=== PATIENT | female | born 1990 | race American Indian/Alaskan Native ===

== ENCOUNTER 2020-09-15 07:16 | Emergency (ER) | payer MEDICAID, OTHER ==
[2020-09-15 07:46] VITALS: BP 118/54
[2020-09-15 08:14] LABS: Hematocrit 34.1 % (30.3-42.9); Hemoglobin 11.5 gm/dl (10.1-14.3); Mean Corpuscular HGB Conc 34 % (30-34); Mean Corpuscular Volume 80 fl (79-97); Platelet Count 290 K/mm3 (140-440); Red Blood Count 4.25 M/mm3 (3.65-5.03); Red Cell Distribution Width 15.6 % (13.2-15.2)
--- NOTE | 2020-09-15 10:44 | Emergency Department Report ---
ED HPI - General Chief complaint: Vaginal Bleeding Stated complaint: 13 WEEKS VAGINAL BLEEDING Time Seen by Provider: 09/15/20 08:49 Source: patient Mode of arrival: Ambulatory Limitations: No Limitations - History of Present Illness Initial comments: This is a 30-year-old female nontoxic, well nourished in appearance, no acute signs of distress presents to the ED with c/o of vaginal bleeding and pelvic pain x1 day. Patient stated is about 13 weeks . Patient denies any abdominal pain. Patient denies any vaginal discharge or foul odor. Patient denies any nausea, vomiting, chest pain, shortness of breathe, fever, chills, headache, stiff neck, numbness, tingling. Patient denies any urinary symptoms. Patient denies any allergies or PMH. MD Complaint: vaginal bleeding, other (pelvic pain) -: days(s) Location: pelvis Radiation: none Severity: mild Severity scale (0 -10): 8 Quality: cramping, aching Consistency: intermittent Improves with: none Worsens with: none Associated symptoms: vaginal bleeding. denies: nausea/vomiting, vaginal discharge, abdominal pain, dysuria, headache, vision changes, malaise, dysparuenia, rash, seizure, shortness of breath, syncope, weakness Vaginal bleeding: light :: Yes Pre- care: followed by OB - Related Data Home Medications Medication Instructions Recorded Confirmed Last Taken Pnv95/Ferrous Fumarate/FA 1 tab PO DAILY 01/11/14 01/30/16 01/10/14 21:00 [ Vitamins] 1 Previous Rx's Medication Instructions Recorded Last Taken Type Tobramycin [Tobrex Opth Oint] 3.5 gm OP Q4HR #1 oint...g. 05/07/14 Unknown Rx cephALEXin [Keflex] 500 mg PO Q6H #30 capsule 05/07/14 Unknown Rx Allergies Allergy/AdvReac Type Severity Reaction Status Date / Time No Known Allergies Allergy Verified 06/30/13 01:23 ED Review of Systems ROS: Stated complaint: 13 WEEKS VAGINAL BLEEDING Other details as noted in HPI Comment: All other systems reviewed and negative Constitutional: denies: chills, fever Eyes: denies: eye pain, eye discharge, vision change ENT: denies: ear pain, throat pain Respiratory: denies: cough, shortness of breath, wheezing Cardiovascular: denies: chest pain, palpitations Endocrine: no symptoms reported Gastrointestinal: denies: abdominal pain, nausea, diarrhea Genitourinary: abnormal menses. denies: urgency, dysuria, discharge Musculoskeletal: denies: back pain, joint swelling, arthralgia Skin: denies: rash, lesions Neurological: denies: headache, weakness, paresthesias Psychiatric: denies: anxiety, depression Hematological/Lymphatic: denies: easy bleeding, easy bruising ED Past Medical Hx - Past Medical History Hx Hypertension: No Hx Heart Attack/AMI: No Hx Congestive Heart Failure: No Hx Diabetes: No Hx Deep Vein Thrombosis: No Hx Renal Disease: No Hx Sickle Cell Disease: No Hx Seizures: No Hx Asthma: No Hx COPD: No Hx HIV: No - Surgical History Additional Surgical History: appendectomy - Social History Smoking Status: Never Smoker - Medications Home Medications: Home Medications Medication Instructions Recorded Confirmed Last Taken Type Pnv95/Ferrous Fumarate/FA 1 tab PO DAILY 01/11/14 01/30/16 01/10/14 21:00 History [ Vitamins] 1 Tobramycin [Tobrex Opth Oint] 3.5 gm OP Q4HR #1 oint...g. 05/07/14 01/30/16 Unknown Rx cephALEXin [Keflex] 500 mg PO Q6H #30 capsule 05/07/14 01/30/16 Unknown Rx ED Physical Exam - General Limitations: No Limitations General appearance: alert, in no apparent distress - Head Head exam: Present: atraumatic, normocephalic - Eye Eye exam: Present: normal appearance - Neck Neck exam: Present: normal inspection, full ROM - Respiratory Respiratory exam: Absent: respiratory distress - Cardiovascular Cardiovascular Exam: Present: regular rate - GI/Abdominal GI/Abdominal exam: Present: soft, normal bowel sounds. Absent: distended, tenderness, guarding, rebound, rigid, diminished bowel sounds - Extremities Exam Extremities exam: Present: full ROM - Back Exam Back exam: Present: normal inspection, full ROM. Absent: tenderness, CVA tenderness (R), CVA tenderness (L), muscle spasm, paraspinal tenderness, vertebral tenderness, rash noted - Neurological Exam Neurological exam: Present: alert, oriented X3, normal gait - Psychiatric Psychiatric exam: Present: normal affect, normal mood - Skin Skin exam: Present: warm, dry, intact, normal color. Absent: rash ED Course Vital Signs 09/15/20 07:45 Temperature 98.9 F Pulse Rate 79 Respiratory 18 Rate Blood Pressure 118/54 [Right] O2 Sat by Pulse 97 Oximetry - Reevaluation(s) Reevaluation #1: 09/15/20 10:47 Patient is speaking in full sentences with no signs of distress noted. ED Medical Decision Making - Lab Data Result diagrams: 09/15/20 08:03 Lab Results 09/15/20 09/15/20 09/15/20 Range/Units 08:03 08:09 09:06 WBC 6.8 (4.5-11.0) K/mm3 RBC 4.25 (3.65-5.03) M/mm3 Hgb 11.5 (10.1-14.3) gm/dl Hct 34.1 (30.3-42.9) % MCV 80 (79-97) fl MCH 27 L (28-32) pg MCHC 34 (30-34) % RDW 15.6 H (13.2-15.2) % Plt Count 290 (140-440) K/mm3 HCG, Quant 64575 H (0-4) mIU/mL Urine Color (Yellow) Urine Turbidity (Clear) Urine pH (5.0-7.0) Ur Specific [place] (1.003-1.030) Urine Protein (Negative) mg/dL Urine Glucose (UA) (Negative) mg/dL Urine Ketones (Negative) mg/dL Urine Blood (Negative) Urine Nitrite (Negative) Urine Bilirubin (Negative) Urine Urobilinogen (<2.0) mg/dL Ur Leukocyte Esterase (Negative) Urine WBC (Auto) (0.0-6.0) /HPF Urine RBC (Auto) (0.0-6.0) /HPF U Epithel Cells (Auto) (0-13.0) /HPF Urine Bacteria (Auto) (Negative) /HPF Hyaline Casts /LPF Urine Mucus /HPF Urine Yeast (Budding) /HPF Blood Type B POSITIVE Ord Rhogam Gestat Weeks Rh pos WEEKS 09/15/20 Range/Units Unknown WBC (4.5-11.0) K/mm3 RBC (3.65-5.03) M/mm3 Hgb (10.1-14.3) gm/dl Hct (30.3-42.9) % MCV (79-97) fl MCH (28-32) pg MCHC (30-34) % RDW (13.2-15.2) % Plt Count (140-440) K/mm3 HCG, Quant (0-4) mIU/mL Urine Color Yellow (Yellow) Urine Turbidity Slightly-cloudy (Clear) Urine pH 6.0 (5.0-7.0) Ur Specific [place] 1.017 (1.003-1.030) Urine Protein 30 mg/dl (Negative) mg/dL Urine Glucose (UA) Neg (Negative) mg/dL Urine Ketones Neg (Negative) mg/dL Urine Blood Lg (Negative) Urine Nitrite Neg (Negative) Urine Bilirubin Neg (Negative) Urine Urobilinogen 2.0 (<2.0) mg/dL Ur Leukocyte Esterase Neg (Negative) Urine WBC (Auto) 6.0 (0.0-6.0) /HPF Urine RBC (Auto) > 182.0 (0.0-6.0) /HPF U Epithel Cells (Auto) 11.0 (0-13.0) /HPF Urine Bacteria (Auto) 1+ (Negative) /HPF Hyaline Casts 1 /LPF Urine Mucus Few /HPF Urine Yeast (Budding) Few /HPF Blood Type Ord Rhogam Gestat Weeks WEEKS - Radiology Data Referring Physician: MAIKEL LEAL Patient Name: JENSEN WOOD Date of : 1990 Sex: Female Report Date: 2020-09-15 Report Status: [place] [address] Ultrasound Report Signed Patient: JENSEN WOOD MR#: [id number] : 1990 Acct:[id number] Age/Sex: 30 / F ADM Date: 09/15/20 Loc: ED Attending Dr: Ordering Physician: MAIKEL LEAL NP Date of Service: 09/15/20 Procedure(s): US OB <= 14 weeks fetus Accession Number(s): [id number] cc: MAIKEL LEAL NP US OB <= 14 weeks fetus INDICATION / CLINICAL INFORMATION: vaginal bleeding. TECHNIQUE: Transabdominal. COMPARISON: None available. FINDINGS: UTERUS: Appears within normal limits. GESTATIONAL SAC: Well-defined oval shape and intrauterine in location. The placenta is low-lying. EMBRYO/FETUS: - [place]- Rump Length = 7.4 cm = 13 weeks 4 days. - Heart Rate, beats per minute (if present) = 155 beats per minute BPD is 2.5 cm, consistent with 14 weeks and 2 days Femur length is 1.2 cm, consistent with 13 weeks and 5 days. ADNEXA: Simple appearing ovarian cysts. FREE FLUID: None. ADDITIONAL FINDINGS: None. IMPRESSION: 1. Single, living intrauterine with estimated sonographic age of 13 weeks 6 days. EDC is 03/17/2021. 2. Low-lying placenta. Signer Name: Gareth Carrion MD Signed: 09/15/2020 10:43 AM Workstation Name: [id number] Transcribed By: CS Dictated By: Gareth Carrion MD Electronically Authenticated By: Gareth Carrion MD Signed Date/Time: 09/15/20 104 DD/ 104 TD/TT: - Medical Decision Making This is a 30-year-old female presents with threatened miscarriage. Patient is stable and was examined by me. Normal abdominal exam. US OB obtained and dictated by the radiologist. Ua obtained. Quantative serum test obtained. Patient notified of the US report with no questions noted by the patient. Patient was instructed f/u with PIECE GOODS CLERK in 3-5 days. RH factor positive. Labs within normal limits. At time of discharge, the patient does not seem toxic or ill in appearance. No acute signs of distress noted. Patient agrees to discharge treatment plan of care. No further questions noted by the patient. Critical care attestation.: If time is entered above; I have spent that time in minutes in the direct care of this critically ill patient, excluding procedure time. ED Disposition Clinical Impression: Threatened miscarriage Disposition: DC-01 TO HOME OR SELFCARE Is pt being admited?: No Does the pt Need Aspirin: No Condition: Stable Instructions: Threatened Miscarriage Additional Instructions: Follow-up with a OBGYN doctor in 3-5 days or if symptoms worsen and continue return to emergency room as soon as possible. Referrals: [facility] [Other] - 3-5 Days PRIMARY CARE, [Referring] - 3-5 Days [facility] [Provider Group] - 3-5 Days Forms: Work/School Release Form(ED)
--- NOTE | 2020-09-15 10:47 | Ultrasound Report ---
US OB <= 14 weeks fetus INDICATION / CLINICAL INFORMATION: vaginal bleeding. TECHNIQUE: Transabdominal. COMPARISON: None available. FINDINGS: UTERUS: Appears within normal limits. GESTATIONAL SAC: Well-defined oval shape and intrauterine in location. The placenta is low-lying. EMBRYO/FETUS: - [place]-Rump Length = 7.4 cm = 13 weeks 4 days. - Heart Rate, beats per minute (if present) = 155 beats per minute BPD is 2.5 cm, consistent with 14 weeks and 2 days Femur length is 1.2 cm, consistent with 13 weeks and 5 days. ADNEXA: Simple appearing ovarian cysts. FREE FLUID: None. ADDITIONAL FINDINGS: None. IMPRESSION: 1. Single, living intrauterine with estimated sonographic age of 13 weeks 6 days. EDC is . 2. Low-lying placenta. Signer Name: Gareth Carrion MD Signed: 09/15/2020 10:43 AM Workstation Name: [id number]
[2020-09-15 12:05] LABS: Bacteria,Urine 1+ /HPF (Negative); Bilirubin,Urine NEG (Negative); Blood,Urine LG (Negative); Color,Urine Yellow (Yellow); Hyaline Casts,Urine 1 /LPF; Mucus,Urine FEW /HPF
[2020-09-15 12:06] LABS: RBC,Urine > 182.0 /HPF (0.0-6.0)
== END 2020-09-15 12:42 | disposition home or self-care (01) ==
LOC: ED 07:16
DX: O20.0 Threatened abortion (principal); Z79.899 Other long term (current) drug therapy; Z3A.18 18 weeks gestation of pregnancy; Z90.49 Acquired absence of other specified parts of digestive tract
CPT/HCPCS: 36415; 76801; 81001; 84702; 85027; 86900; 86901

== ENCOUNTER 2020-11-07 12:11 | Emergency (ER) | payer OTHER ==
[2020-11-07] MEDS ORDERED: ONDANSETRON 4 MG/2 ML INJ IV ONE (13:42)
[2020-11-07] MEDS ORDERED: SODIUM CHLORIDE 0.9% 1000 ML 1,000 ML IV ONE ×2 (13:43→19:19)
--- NOTE | 2020-11-07 13:45 | Event Note ---
ED Screening Note Date of service: 11/07/20 Time: 13:43 ED Screening Note: 30-year-old female with no significant past medical history who is currently 22 weeks presents to the ER today complaining of shortness of breath cough, vomiting, headache for 2 days. Patient states that she had a Covid positive test yesterday. She reports associated generalized body aches, dizziness, loss of taste and smell, sharp chest pain with cough and pain to the sides of her abdomen. She also reports that she has been vomiting, she reports 3 episodes of vomiting in the past 2 days. He states that her BROADBAND ENGINEER recommended she come to the ER for evaluation. She is G5, P2 Ab2. Her BROADBAND ENGINEER is: My BROADBAND ENGINEER This initial assessment/diagnostic orders/clinical plan/treatment(s) is/are subject to change based on patients health status, clinical progression and re- assessment by fellow clinical providers in the ED. Further treatment and workup at subsequent clinical providers discretion. Patient/guardian urged not to elope from the ED as their condition may be serious if not clinically assessed and m anaged. Initial orders include: CBC, CMP, urinalysis, chest x-ray (risk and benefits discussed with patient), IV fluids, Zofran and Tylenol
[2020-11-07] MEDS ORDERED: ACETAMINOPHEN 325 MG TAB PO ONE (13:46)
[2020-11-07 14:01] LABS: Basophils % (Auto) 0.3 % (0.0-1.8); Eosinophils % (Auto) 0.1 % (0.0-4.3); Hematocrit 36.8 % (30.3-42.9); Hemoglobin 11.9 gm/dl (10.1-14.3); Lymphocytes % (Auto) 13.4 % (13.4-35.0); Mean Corpuscular HGB Conc 33 % (30-34); Mean Corpuscular Volume 81 fl (79-97); Monocytes # (Auto) 0.4 K/mm3 (0.0-0.8); Monocytes % (Auto) 5.7 % (0.0-7.3); Platelet Count 275 K/mm3 (140-440); Red Blood Count 4.57 M/mm3 (3.65-5.03); Red Cell Distribution Width 15.4 % (13.2-15.2)
[2020-11-07 14:20] LABS: Alanine Aminotransferase 10 units/L (7-56); Albumin 3.5 g/dL (3.9-5); Blood Urea Nitrogen 5 mg/dL (7-17); Calcium 8.9 mg/dL (8.4-10.2); Hemolysis Index 14
[2020-11-07 14:23] LABS: BUN/Creatinine Ratio 10
--- NOTE | 2020-11-07 14:34 | XRay Report ---
CHEST PA AND LATERAL VIEWS INDICATION: Shortness of breath, cough, COVID-19 positive. COMPARISON: None FINDINGS: Support devices: None Heart: Normal Lungs/Pleura: No acute pulmonary or pleural findings. IMPRESSION: 1. No significant abnormality. Signer Name: Dave Mcmanus MD Signed: 11/07/2020 2:30 PM Workstation Name: [id number]
[2020-11-07 17:01] LABS: Bilirubin,Urine NEG (Negative); Blood,Urine NEG (Negative); Color,Urine Amber (Yellow); Mucus,Urine 2+ /HPF
[2020-11-07] MEDS ORDERED: ONDANSETRON 4 MG/2 ML INJ ONE (17:23)
[2020-11-07] MEDS ORDERED: SODIUM CHLORIDE 0.9% 1000 ML 1,000 ML ONE (17:23)
[2020-11-07] MEDS ORDERED: ACETAMINOPHEN 325 MG TAB ONE (17:32)
[2020-11-07] MEDS ORDERED: METOCLOPRAMIDE 10 MG/2 ML INJ IV ONE (19:22)
--- NOTE | 2020-11-07 19:30 | Emergency Department Report ---
HPI - General Chief Complaint: Dyspnea/Respdistress Time Seen by Provider: 11/07/20 19:03 - HPI HPI: Room 36 The patient is a 30-year-old female present with a chief complaint of COVID-19. The patient states she tested positive for COVID-19 3 days ago. The patient states for the past 2 to 3 days she has had a headache shortness of breath nausea vomiting and loss of taste and smell. Patient denies history of fever. Patient denies vaginal bleeding but complains of bilateral abdominal pain. The patient is at 22 weeks gestational age. ED Past Medical Hx - Past Medical History Previous Medical History?: No - Surgical History Additional Surgical History: appendectomy - Family History Family history: no significant - Social History Smoking Status: Never Smoker Substance Use Type: None (Denies illicit drug use) - Medications Home Medications: Home Medications Medication Instructions Recorded Confirmed Last Taken Type Pnv95/Ferrous Fumarate/FA 1 tab PO DAILY 01/11/14 01/30/16 01/10/14 21:00 History [ Vitamins] 1 Tobramycin [Tobrex Opth Oint] 3.5 gm OP Q4HR #1 oint...g. 05/07/14 01/30/16 Unknown Rx cephALEXin [Keflex] 500 mg PO Q6H #30 capsule 05/07/14 01/30/16 Unknown Rx Albuterol Mdi (or & Nicu Only) 2 puff IH QID PRN #8.5 gram 11/07/20 Unknown Rx [ProAir HFA Inhaler] ED Review of Systems ROS: Stated complaint: COVID/ 22WKS/COUGH/HEADACHE Other details as noted in HPI Constitutional: denies: fever Eyes: denies: eye pain ENT: other (Loss of taste and smell). denies: throat pain Respiratory: shortness of breath Cardiovascular: denies: chest pain Endocrine: no symptoms reported Gastrointestinal: abdominal pain, nausea, vomiting Genitourinary: denies: dysuria Musculoskeletal: denies: back pain Neurological: headache Physical Exam - Physical Exam Vital Signs: Vital Signs 11/07/20 11/07/20 11/07/20 12:23 16:41 17:35 Temperature 98.4 F 98.1 F Pulse Rate 117 H 108 H Respiratory 20 18 18 Rate Blood Pressure 127/79 106/57 O2 Sat by Pulse 98 99 Oximetry Physical Exam: GENERAL: The patient is well-developed well-nourished female lying on stretcher not appearing to be in acute distress. [] HEENT: Normocephalic. Atraumatic. Extraocular motions are intact. Patient has moist mucous membranes. NECK: Supple. Trachea midline CHEST/LUNGS: Clear to auscultation. There is no respiratory distress noted. HEART/CARDIOVASCULAR: Regular. There is no tachycardia. There is no gallop rub or murmur. ABDOMEN: Abdomen is soft, with diffuse tenderness to palpation. There is no rebound or guarding. Patient has normal bowel sounds. The patient is gravid SKIN: There is no rash. There is no edema. There is no diaphoresis. NEURO: The patient is awake, alert, and oriented. The patient is cooperative. The patient has no focal neurologic deficits. The patient has normal speech MUSCULOSKELETAL: There is no evidence of acute injury. ED Course Vital Signs 11/07/20 11/07/20 11/07/20 12:23 16:41 17:35 Temperature 98.4 F 98.1 F Pulse Rate 117 H 108 H Respiratory 20 18 18 Rate Blood Pressure 127/79 106/57 O2 Sat by Pulse 98 99 Oximetry - Consultations Consultation #1: 11/07/20 21:57 SMUTTER paged 11/07/20 22:05 Case discussed with Anne nurse concrete layer for Dr. Kent- states patient may be discharged home. States it is okay to give patient prescription for albuterol inhaler ED Medical Decision Making - Lab Data Result diagrams: 11/07/20 13:47 11/07/20 13:47 Laboratory Tests 11/07/20 11/07/20 11/07/20 13:47 13:47 13:47 WBC 7.3 RBC 4.57 Hgb 11.9 Hct 36.8 MCV 81 MCH 26 L MCHC 33 RDW 15.4 H Plt Count 275 Lymph % (Auto) 13.4 [place] % (Auto) 5.7 Eos % (Auto) 0.1 Baso % (Auto) 0.3 Lymph # (Auto) 1.0 L [place] # (Auto) 0.4 Eos # (Auto) 0.0 Baso # (Auto) 0.0 Seg Neutrophils % 80.5 H Seg Neutrophils # 5.9 Sodium 133 L Potassium 3.9 Chloride 102.1 Carbon Dioxide 22 Anion Gap 13 BUN 5 L Creatinine 0.5 L Estimated GFR > 60 BUN/Creatinine Ratio 10 Glucose 73 Calcium 8.9 Total Bilirubin 0.30 AST 14 ALT 10 Alkaline Phosphatase 86 Total Protein 6.8 Albumin 3.5 L Albumin/Globulin Ratio 1.1 Lipase 19 Urine Color Urine Turbidity Urine pH Ur Specific [place] Urine Protein Urine Glucose (UA) Urine Ketones Urine Blood Urine Nitrite Urine Bilirubin Urine Urobilinogen Ur Leukocyte Esterase Urine WBC (Auto) Urine RBC (Auto) U Epithel Cells (Auto) Urine Mucus 11/07/20 14:09 WBC RBC Hgb Hct MCV MCH MCHC RDW Plt Count Lymph % (Auto) [place] % (Auto) Eos % (Auto) Baso % (Auto) Lymph # (Auto) [place] # (Auto) Eos # (Auto) Baso # (Auto) Seg Neutrophils % Seg Neutrophils # Sodium Potassium Chloride Carbon Dioxide Anion Gap BUN Creatinine Estimated GFR BUN/Creatinine Ratio Glucose Calcium Total Bilirubin AST ALT Alkaline Phosphatase Total Protein Albumin Albumin/Globulin Ratio Lipase Urine Color [place] Urine Turbidity Slightly-cloudy Urine pH 6.0 Ur Specific [place] 1.026 Urine Protein 30 mg/dl Urine Glucose (UA) Neg Urine Ketones 80 Urine Blood Neg Urine Nitrite Neg Urine Bilirubin Neg Urine Urobilinogen 4.0 Ur Leukocyte Esterase Tr Urine WBC (Auto) 1.0 Urine RBC (Auto) 4.0 U Epithel Cells (Auto) 24.0 H Urine Mucus 2+ - Radiology Data Radiology results: report reviewed (Chest x-ray, right upper quadrant ultrasound, pelvic ultrasound), image reviewed (Chest x-ray, right upper quadrant ultrasound, pelvic ultrasound) interpreted by me: Chest x-ray-left lower lobe atelectasis. No pneumothorax. No foreign body seen Findings [address] [address] XRay Report Signed Patient: JENSEN WOOD MR#: [id number] : 1990 Acct:[id number] Age/Sex: 30 / F ADM Date: 11/07/20 Loc: ED Attending Dr: Ordering Physician: KATIE LOPEZ Date of Service: 11/07/20 Procedure(s): XR chest routine 2V Accession Number(s): [id number] cc: KATIE LOPEZ Fluoro Time In Minutes: CHEST PA AND LATERAL VIEWS INDICATION: Shortness of breath, cough, COVID-19 positive. COMPARISON: None FINDINGS: Support devices: None Heart: Normal Lungs/Pleura: No acute pulmonary or pleural findings. IMPRESSION: 1. No significant abnormality. Signer Name: Dave Mcmanus MD Signed: 11/07/2020 2:30 PM Workstation Name: [id number] Transcribed By: MISAEL Dictated By: Dave Mcmanus MD Electronically Authenticated By: Dave Mcmanus MD Signed Date/Time: 11/07/201429 DD/ 28 TD/TT: Findings [facility] [address] [place] [address] Ultrasound Report Signed Patient: JENSEN WOOD MR#: [id number] : 1990 Acct:[id number] Age/Sex: 30 / F ADM Date: 11/07/20 Loc: ED Attending Dr: Ordering Physician: JACKLYN KCOH MD Date of Service: 11/07/20 Procedure(s): US abdomen limited Accession Number(s): [id number] cc: JACKLYN KOCH MD US abdomen limited INDICATION / CLINICAL INFORMATION: Diffuse pain, 22 weeks gestational age, Covid +. COMPARISON: None available. FINDINGS: PANCREAS: The p ancreas is largely obscured by shadowing from overlying bowel gas. ABDOMINAL AORTA: No significant abnormality. IVC: No significant abnormality. LIVER: The liver measures 17 cm in length. The liver demonstrates a normal echogenicity and morphology. PORTAL VEIN: Normal hepatopedal blood flow in the main portal vein. GALLBLADDER: The gallbladder is unremarkable. There is no cholelithiasis, gallbladder wall thickening, or pericholecystic fluid. BILE DUCTS: No significant abnormality. Common bile duct measures 2 mm. FREE FLUID: None. ADDITIONAL FINDINGS: None. IMPRESSION: No sonographic abnormality of the right upper quadrant. Signer Name: Asya Kahn MD Signed: 11/07/2020 9:22 PM Workstation Name: [id number] Transcribed By: JENNIFER Dictated By: ASYA KAHN MD Electronically Authenticated By: ASYA KAHN MD Signed Date/Time: 11/07/202121 DD/ 19 TD/TT: ULTRASOUND OBSTETRIC LIMITED INDICATION / CLINICAL INFORMATION: Diffuse pain, 22 weeks gestational age, Covid +. Clinical Gestational Age (GA) in weeks, days: TECHNIQUE: Transabdominal. COMPARISON: 09/15/2020. FINDINGS: Single live intrauterine . MEASUREMENTS: - Biparietal Diameter = 5.2 cm = 21 weeks 5 days - Head Circumference = 18.9 cm = 21 weeks 1 day - Abdominal Ci rcumference = 16.4 cm = 21 weeks 3 days - Femur Length = 4.3 cm = 24 weeks 2 days Total AUA: 22 weeks 1 day HEART RATE (beats per minute): 144 AMNIOTIC FLUID = subjectively within normal limits PRESENTATION: Cephalic. ADDITIONAL FINDINGS: Anterior/fundal placenta is unremarkable. There is V-shaped cervical funneling with cervix measuring 2.3 cm. The funneling measures approximately 1.6 cm in width and 1.9 cm in depth. Percentage of funneling measures 45%. IMPRESSION: 1. Single live intrauterine with measurements corresponding to gestational age of 22 weeks 1 day. 2. V-shaped cervical funneling, with percentage of funneling measuring approximately 45%. Close continued clinical surveillance is recommended. Signer Name: Asya Kahn MD Signed: 11/07/2020 8:28 PM Workstation Name: [id number] - Medical Decision Making 2-minute walking SPO2 96% on room air. - Differential Diagnosis COVID-19, UTI, Critical care attestation.: If time is entered above; I have spent that time in minutes in the direct care of this critically ill patient, excluding procedure time. ED Disposition Clinical Impression: COVID-19, Disposition: DC-01 TO HOME OR SELFCARE Is pt being admited?: No Does the pt Need Aspirin: No Condition: Stable Instructions: and COVID-19, COVID-19: How to Protect Yourself and Others - [facility] Additional Instructions: Return to the emergency department should you develop worsening symptoms, inability to tolerate food or liquids, high fever or any other concerns Prescriptions: Albuterol Mdi (or & Nicu Only) [ProAir HFA Inhaler] 2 puff IH QID PRN #8.5 gram PRN Reason: Shortness Of Breath Referrals: SIRENA KENT MD [Staff Physician] - 3-5 Days Time of Disposition: 22:07
--- NOTE | 2020-11-07 21:26 | Ultrasound Report ---
US abdomen limited INDICATION / CLINICAL INFORMATION: Diffuse pain, 22 weeks gestational age, Covid +. COMPARISON: None available. FINDINGS: PANCREAS: The pancreas is largely obscured by shadowing from overlying bowel gas. ABDOMINAL AORTA: No significant abnormality. IVC: No significant abnormality. LIVER: The liver measures 17 cm in length. The liver demonstrates a normal echogenicity and morpholo gy. PORTAL VEIN: Normal hepatopedal blood flow in the main portal vein. GALLBLADDER: The gallbladder is unremarkable. There is no cholelithiasis, gallbladder wall thickening , or pericholecystic fluid. BILE DUCTS: No significant abnormality. Common bile duct measures 2 mm. FREE FLUID: None. ADDITIONAL FINDINGS: None. IMPRESSION: No sonographic abnormality of the right upper quadrant. Signer Name: Aric Kahn MD Signed: 11/07/2020 9:22 PM Workstation Name: [id number]
--- NOTE | 2020-11-07 21:33 | Ultrasound Report ---
ULTRASOUND OBSTETRIC LIMITED INDICATION / CLINICAL INFORMATION: Diffuse pain, 22 weeks gestational age, Covid +. Clinical Gestational Age (GA) in weeks, days: TECHNIQUE: Transabdominal. COMPARISON: 09/15/2020. FINDINGS: Single live intrauterine . MEASUREMENTS: - Biparietal Diameter = 5.2 cm = 21 weeks 5 days - Head Circumference = 18.9 cm = 21 weeks 1 day - Abdominal Circumference = 16.4 cm = 21 weeks 3 days - Femur Length = 4.3 cm = 24 weeks 2 days Total AUA: 22 weeks 1 day HEART RATE (beats per minute): 144 AMNIOTIC FLUID = subjectively within normal limits PRESENTATION: Cephalic. ADDITIONAL FINDINGS: Anterior/fundal placenta is unremarkable. There is V-shaped cervical funneling w ith cervix measuring 2.3 cm. The funneling measures approximately 1.6 cm in width and 1.9 cm in depth . Percentage of funneling measures 45%. IMPRESSION: 1. Single live intrauterine with measurements corresponding to gestational age of 22 weeks 1 day. 2. V-shaped cervical funneling, with percentage of funneling measuring approximately 45%. Close meghan nued clinical surveillance is recommended. Signer Name: Aric Kahn MD Signed: 11/07/2020 9:28 PM Workstation Name: [id number]
[2020-11-07 21:39] VITALS: BP 113/64
== END 2020-11-07 22:15 | disposition home or self-care (01) ==
LOC: ED 12:11
DX: O98.512 Other viral diseases complicating pregnancy, second trimester (principal); U07.1 COVID-19; Z3A.22 22 weeks gestation of pregnancy; Z90.49 Acquired absence of other specified parts of digestive tract; Z79.899 Other long term (current) drug therapy
CPT/HCPCS: 36415; 71046; 76705; 76816; 80053; 81001; 83690; 85025; 96361; 96374; 96375; 99284; J2405; J2765; J7030

== ENCOUNTER 2020-12-20 07:58 | Outpatient (CLI) | payer OTHER ==
[2020-12-20] MEDS ORDERED: LACTATED RINGERS 500 ML IV ONE (08:30)
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
[2020-12-20 09:59] VITALS: BP 111/55
== END 2020-12-20 13:37 | disposition home or self-care (01) ==
LOC: TRG 07:58 → APU 08:00 → TRG 13:37
PROVIDERS: ATTEND Obstetrics & Gynecology
DX: O26.892 Other specified pregnancy related conditions, second trimester (principal); R10.9 Unspecified abdominal pain; Z3A.27 27 weeks gestation of pregnancy
CPT/HCPCS: 36415; 59025; 76815; 76819; 82731

== ENCOUNTER 2021-01-15 15:05 | Outpatient (CLI) | payer OTHER ==
[2021-01-15] MEDS ORDERED: LACTATED RINGERS 1,000 ML IV ONE (15:25)
[2021-01-15 15:33] VITALS: BP 119/62
[2021-01-15 16:25] LABS: Bilirubin,Urine NEG (Negative); Blood,Urine NEG (Negative); Color,Urine Amber (Yellow); Mucus,Urine 3+ /HPF
== END 2021-01-15 16:53 | disposition home or self-care (01) ==
LOC: TRG 15:05 → APU 15:06 → TRG 16:53
PROVIDERS: ATTEND Obstetrics & Gynecology
DX: O26.893 Other specified pregnancy related conditions, third trimester (principal); R10.9 Unspecified abdominal pain; Z3A.30 30 weeks gestation of pregnancy
CPT/HCPCS: 59025; 81001

== ENCOUNTER 2021-03-13 07:29 | Outpatient (CLI) | payer BC, OTHER ==
[2021-03-13 07:57] VITALS: BP 113/60
[2021-03-13] MEDS ORDERED: ACETAMINOPHEN 500 MG TAB PO ONE (10:13)
--- NOTE | 2021-03-13 10:20 | Event Note ---
Date: 03/13/21 (Labor) Pt presented to labor and delivery triage @ 39.2 wks with c/o LOF, ctxs. Upon assessment in triage: ROM test was submitted and resulted as negative. Cervical exam /3. Contractions were every 30 minutes to an hour. Category 1 tracing throughout triage visit. Pt was allowed to walk for 1 hr. Cervical exam after walking remained unchanged. Medications given to help patient relax at home and sleep. Given strict labor precautions, and instructed when to call the publications designer provider and come to triage for evaluation. Pt verbalized understanding.
--- NOTE | 2021-03-13 11:40 | Event Note ---
Date: 03/13/21 (BP )
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
== END 2021-03-13 12:44 | disposition home or self-care (01) ==
LOC: TRG 07:29 → APU 07:30 → TRG 12:44
PROVIDERS: ATTEND Obstetrics & Gynecology
DX: O47.1 False labor at or after 37 completed weeks of gestation (principal); O42.92 Full-term premature rupture of membranes, unspecified as to length of time between rupture and onset of labor; Z3A.39 39 weeks gestation of pregnancy; Z20.822 Contact with and (suspected) exposure to COVID-19
CPT/HCPCS: 36415; 59025; 76815; 76819; 84112; U0003

== ENCOUNTER 2021-03-22 00:57 | Inpatient (IN) | payer BC, OTHER ==
[2021-03-22 01:58] LABS: Basophils # (Auto) 0.1 K/mm3 (0.0-0.1); Basophils % (Auto) 0.7 % (0.0-1.8); Eosinophils % (Auto) 0.2 % (0.0-4.3); Hematocrit 30.5 % (30.3-42.9); Hemoglobin 10.3 gm/dl (10.1-14.3); Lymphocytes # (Auto) 2.1 K/mm3 (1.2-5.4); Lymphocytes % (Auto) 24.9 % (13.4-35.0); Mean Corpuscular HGB Conc 34 % (30-34); Mean Corpuscular Volume 70 fl (79-97); Monocytes # (Auto) 0.6 K/mm3 (0.0-0.8); Monocytes % (Auto) 6.8 % (0.0-7.3); Platelet Count 331 K/mm3 (140-440); Red Blood Count 4.39 M/mm3 (3.65-5.03); Red Cell Distribution Width 16.7 % (13.2-15.2)
[2021-03-22 15:31] LABS: Hematocrit 30.6 % (30.3-42.9); Hemoglobin 9.9 gm/dl (10.1-14.3)
[2021-03-23 19:49] VITALS: BP 104/66
== END 2021-03-23 21:00 | disposition home or self-care (01) | DRG 806 ==
LOC: TRG 00:57 → LD 01:06 → UNDOADMIN 01:06 → LD 01:16 → OB 03:24
PROVIDERS: ADMIT Obstetrics & Gynecology; ATTEND Obstetrics & Gynecology
PROC: 10E0XZZ Delivery of Products of Conception, External Approach (ICD-10-PCS; principal; 2021-03-22)
PROC: 3E0234Z Introduction of Serum, Toxoid and Vaccine into Muscle, Percutaneous Approach (ICD-10-PCS; 2021-03-23)
DX: O62.3 Precipitate labor (principal); O98.82 Other maternal infectious and parasitic diseases complicating childbirth; Z37.0 Single live birth; O48.0 Post-term pregnancy; O70.0 First degree perineal laceration during delivery; B95.1 Streptococcus, group B, as the cause of diseases classified elsewhere; Z3A.40 40 weeks gestation of pregnancy; Z90.49 Acquired absence of other specified parts of digestive tract; Z79.899 Other long term (current) drug therapy; Z23 Encounter for immunization; Z20.822 Contact with and (suspected) exposure to COVID-19
CPT/HCPCS: 36415; 59025; 85014; 85018; 85025; 86592; 86762; 86850; 86900; 86901; G0378; A6250; J2590; J3010; U0003